=== PATIENT | male | born 1950 | race Caucasian/White ===

== ENCOUNTER 2019-07-17 12:22 | Inpatient (IN) | payer MEDICARE ==
[2019-07-10 15:31] LABS: BASOPHILS # (AUTO) 0.1 X10'3 (0-0.2); BASOPHILS % (AUTO) 1.1 % (0-1); EOSINOPHILS # (AUTO) 0.1 X10'3 (0-0.9); EOSINOPHILS % (AUTO) 1.4 % (0-6); LYMPHOCYTES # (AUTO) 1.3 X10'3 (1.1-4.8); LYMPHOCYTES % (AUTO) 23.7 % (21-51); MEAN CORPUSCULAR HEMOGLOBIN 32.3 PG (27.0-31.0); MEAN CORPUSCULAR HGB CONC 35.1 g/dL (33.0-36.5); MEAN PLATELET VOLUME 7.4 FL (7.4-10.4); MONOCYTES # (AUTO) 0.5 X10'3 (0-0.9); MONOCYTES % (AUTO) 9.3 % (2-12); NEUTROPHILS # (AUTO) 3.7 X10'3 (1.8-7.7); NEUTROPHILS % (AUTO) 64.5 % (42-75); PRE OP HEMATOCRIT 41.3 % (42.0-52.0); PRE OP HEMOGLOBIN 14.5 g/dL (14.0-17.9); PRE OP PLATELET COUNT 199 X10'3 (140-440); RED BLOOD COUNT 4.49 X10'6 (4.70-6.10); RED CELL DISTRIBUTION WIDTH 13.1 % (11.5-14.5)
[2019-07-10 15:44] LABS: PRE OP INR 1.1 INR; PRE OP PROTIME 11.2 SECONDS (9.0-12.0)
[2019-07-10 16:04] LABS: ALBUMIN/GLOBULIN RATIO 1.1 (1.1-1.5); ALKALINE PHOSPHATASE 93 IU/L (46-116); BLOOD UREA NITROGEN 10 MG/DL (7-18); BUN/CREATININE RATIO 8.8 (5.4-32.0); CALCIUM 8.9 MG/DL (8.5-10.1); CHLORIDE 97 MMOL/L (99-107); CREATININE 1.14 MG/DL (0.60-1.10); PRE OP ALT 49 U/L (30-65); PRE OP ANION GAP 8 (8-16); PRE OP AST 42 U/L (10-37); PRE OP GLUCOSE 118 MG/DL (70-104); PRE OP POTASSIUM 4.1 MMOL/L (3.4-5.1); PRE OP SODIUM 133 MMOL/L (135-145); TOTAL PROTEIN 7.6 G/DL (6.4-8.2); eGFR 64 ML/MIN
[2019-07-10 16:17] LABS: HEMOGLOBIN A1C 6.2 % (4.5-6.2)
[~2019-07-17] VITALS: Ht 185.4 cm; Wt 114.0 kg
[2019-07-17] VITALS (18 sets, daily range): BP systolic 119–191; BP diastolic 45–91
[2019-07-17] MEDS: atenolol 50mg tablet PO SCH (08:00)
[2019-07-17] MEDS: lisinopril 20mg tablet PO SCH (08:00)
[2019-07-17] MEDS: ascorbic acid 500mg tablet PO SCH ×2 (08:00→20:13)
[2019-07-17] MEDS: gabapentin 300mg capsule PO SCH ×3 (08:00→20:13)
[2019-07-17] MEDS: multivitamins, therapeutics tablet PO SCH (08:00)
[2019-07-17] MEDS: pantoprazole 40mg Tablet.DR PO SCH ×2 (08:00→20:13)
[~2019-07-17 12:22] MED LIST: ALPR-13; ATEN1TAB4 PO; BENA40TA72 PO; CLOP75TA35 PO; DOCUMENT DATE & TIME OF BETA-BLOCKER PO ONE; FEXO-124 PO; GLIM1TAB3 PO; HYDROmorphone 1 mg/ml syringe IV PRN; HYDROmorphone inj. 0.5 MG/0.5 ML DISP.SYRIN IV PRN; MESSAGE TO PHARMACY PO ONE; METF500T PO; NITR0.4T51 SL; PANT40TA4 PO; ROPIVAcaine 0.5% (5mg/ml) 30ml vial ONE; SIMV80TA2 PO; ZOLP10TA5 PO; acetaminophen 325mg tablet PO ONE; acetaminophen 325mg tablet PO PRN; bisacodyl 10mg suppository rectal RC PRN; cefazolin/dext.iso 2gm/100ml 100 ML IV ONE; cefazolin/dext.iso 2gm/100ml 100 ML IV SCH; celeCOXIB 100mg capsule PO ONE; cloNIDine hcl/PF 100mcg/ml inj ONE; dextrose 50%-water 50ml dispensing syringe IV PRN; dextrose ORAL solution 15 GM/59 ML bottle PO PRN; diphenhydrAMINE 25mg capsule PO PRN; epiNEPHrine 1 mg/ml inj ONE; famotidine 20mg tablet PO ONE; gabapentin 300mg capsule PO ONE; glucagon, human recombinant 1mg kit SUBCUT PRN; insulin Lispro (HumaLOG) vial - multi-dose SQ SCH; ketorolac trometh. 30mg/ml inj. ONE; magnesium hydroxide 30ml (MOM) UD suspension PO PRN; metoclopramide 5 mg/ml inj IV ONE; nitroGLYCERIN 0.4mg SUBLingual tab SL PRN; ondansetron/PF 4mg/2ml inj IV PRN; oxyCODONE SR 10mg (sust. release) tab -2 tabs (20mg) PO ONE; oxyCODONE/APAP 10/325mg tablet PO PRN; ringers solution, lacted 1,000 ML IV SCH; tranexamic acid inj. 1,000 MG in normal saline 100 ML IV ONE; vancomycin 1,000mg inj ONE; vancomycin inj 1,500 MG in normal saline 300ml IV soln IV ONE
[2019-07-17] MEDS ORDERED: mineral oil 10ml sterile, topical TP ONE (12:54)
[2019-07-17] MEDS ORDERED: ringers solution, lacted 1,000 ML IV SCH (13:26)
[2019-07-17] MEDS ORDERED: hydrALAZINE 20mg/ml inj. IV ONE (13:28)
[2019-07-17] MEDS ORDERED: fentaNYL/PF 50MCG/1 ML 2ML syringe IV PRN ×2 (13:30)
[2019-07-17] MEDS ORDERED: labetalol 20mg/4ml (5mg/ml) syringe IV PRN (13:30)
[2019-07-17] MEDS ORDERED: tetracaine 1% (10mg/ml) pres. free inj. ONE (13:30)
[2019-07-17] MEDS ORDERED: morphine 4 MG/ML inj SYRINge IV PRN ×2 (13:30)
[2019-07-17] MEDS ORDERED: hydrALAZINE 20mg/ml inj. IV PRN (13:30)
[2019-07-17] MEDS ORDERED: ondansetron/PF 4mg/2ml inj IV PRN ×2 (13:30→14:15)
[2019-07-17] MEDS ORDERED: morphine /PF 1mg/ml 10ml inj. ONE (13:33)
[2019-07-17] MEDS ORDERED: MIDAZolam 1mg/ml 10ml vial ONE (13:33)
[2019-07-17] MEDS ORDERED: ROPIVAcaine 0.2%/PF PUMP/bolus 550 ML ADDCANAL SCH (14:12)
[2019-07-17] MEDS ORDERED: ROPIVAcaine 0.2% (10 MG/5 ML) BOLUS INJECTION ADDCANAL PRN ×2 (14:15→17:20)
[2019-07-17] MEDS ORDERED: diphenhydrAMINE 50 mg/ml inj IV PRN (14:15)
--- NOTE | 2019-07-17 16:25 | NUR ---
Received from OR via BED , accompanied by Anesthesiologist and report given by Anesthesiolgist. PATIENT WAKING UP, DENIES PAIN, V/S WNL, NEUROVASCULAR CHECKS INTACT, SAVANNAH DRESSING TO LEFT KNEE CDI WITH COLD POWDER PACK ON AND ON QUE BALL BLOCK AT 4ML/HR. SCD ON. 18G LUE PIV. F/C DRAINING CLEAR YELLOW URINE
[2019-07-17] MEDS: ROPIVAcaine 0.2%/PF PUMP/bolus 550 ML ADDCANAL SCH (17:35)
--- NOTE | 2019-07-17 17:35 | NUR ---
PATIENT WAKING UP, DENIES PAIN, V/S WNL, NEUROVASCULAR CHECKS INTACT, SAVANNAH DRESSING TO LEFT KNEE CDI WITH COLD POWDER PACK ON AND ON QUE BALL BLOCK AT 4ML/HR. SCD ON. 18G LUE PIV. F/C DRAINING CLEAR YELLOW URINE. TELE ON. .. pATIENT TAKEN TO ORTHO ROOM AND HOOKED UP TO MONITORS IN ROOM AND PULSE OX, CALL LIGHT GIVEN TO PATIENT AND Problems reprioritized. Patient report given , questions answered & plan of care reviewed RECIEVING FENCE MAKER WHO HAS TAKEN OVER PATIENT CARE.
--- NOTE | 2019-07-17 18:20 | NUR ---
Report to Emilia CARDOSO
[2019-07-17] MEDS ORDERED: tranexamic acid inj. 1,000 MG in normal saline 100ml IV soln 100 ML IV ONE (20:00)
[2019-07-17] MEDS: sennosides 8.6mg tablet PO SCH (20:13)
[2019-07-17] MEDS: loratadine 10mg tablet PO SCH (20:13)
[2019-07-17] MEDS: atorvastatin 20mg tablet PO SCH (20:14)
[2019-07-17] MEDS: zolpidem 5mg tablet PO SCH ×2 (20:21→23:56)
[2019-07-17] MEDS: insulin glargine (Lantus) pen - multi-dose SQ SCH (21:00)
[2019-07-17] MEDS: potassium cl 20mEq in 1/2 NS 1,000 ML IV SCH ×2 (22:41→23:59)
[2019-07-18] MEDS: cefazolin/dext.iso 2gm/100ml 100 ML IV SCH ×2 (00:51→08:57)
[2019-07-18 06:00] VITALS: BP 148/67
[2019-07-18 06:19] LABS: BASOPHILS % (AUTO) 0.6 % (0-1); EOSINOPHILS % (AUTO) 0.1 % (0-6); HEMATOCRIT 36.3 % (42.0-52.0); HEMOGLOBIN 12.7 g/dl (14.0-17.9); LYMPHOCYTES # (AUTO) 0.2 X10'3 (1.1-4.8); LYMPHOCYTES % (AUTO) 2.6 % (21-51); MEAN CORPUSCULAR HEMOGLOBIN 32.5 PG (27.0-31.0); MEAN CORPUSCULAR HGB CONC 34.9 g/dL (33.0-36.5); MEAN CORPUSCULAR VOLUME 93.2 FL (78-98); MEAN PLATELET VOLUME 7.6 FL (7.4-10.4); MONOCYTES # (AUTO) 0.3 X10'3 (0-0.9); MONOCYTES % (AUTO) 3.2 % (2-12); NEUTROPHILS # (AUTO) 7.6 X10'3 (1.8-7.7); NEUTROPHILS % (AUTO) 93.5 % (42-75); PLATELET COUNT 171 X10'3 (140-440); RED CELL DISTRIBUTION WIDTH 12.8 % (11.5-14.5); WHITE BLOOD COUNT 8.1 X10'3 (4.5-11.0)
--- NOTE | 2019-07-18 06:40 | NUR ---
REPORT GIVEN TO WALKER DE JESUS.
[2019-07-18 07:44] LABS: ANION GAP 12 (8-16); CHLORIDE 94 MMOL/L (99-107); POTASSIUM 4.5 MMOL/L (3.5-5.1); SODIUM 129 MMOL/L (135-145); TOTAL CARBON DIOXIDE 23.5 MMOL/L (24-32)
[2019-07-18] MEDS: clopidogrel 75mg tablet PO SCH ×2 (08:20→08:56)
[2019-07-18] MEDS: chlorthalidone 25mg tablet PO SCH (08:55)
[2019-07-18] MEDS: ascorbic acid 500mg tablet PO SCH ×2 (08:55→20:03)
[2019-07-18] MEDS: atenolol 50mg tablet PO SCH (08:55)
[2019-07-18] MEDS: gabapentin 300mg capsule PO SCH ×3 (08:55→20:04)
[2019-07-18] MEDS: pantoprazole 40mg Tablet.DR PO SCH ×2 (08:56→20:04)
[2019-07-18] MEDS: lisinopril 20mg tablet PO SCH (08:56)
[2019-07-18] MEDS: multivitamins, therapeutics tablet PO SCH (08:56)
[2019-07-18] MEDS: potassium cl 20mEq in 1/2 NS 1,000 ML IV SCH ×3 (08:57→23:24)
[2019-07-18 10:00] VITALS: BP 143/48
[2019-07-18 14:00] VITALS: BP 121/98
--- NOTE | 2019-07-18 15:32 | NUR ---
Protein ed: Pt s/p arthroplasty of left knee. RD and safety intern visit pt at bedside, provided written protein education with verbal review and RD contact information; emphasized the importance of protein to support wound healing and fighting infections. Pt PO intake avg 75% on a consistent carbohydrate diet, meeting nutrient needs. Pt declines additional protein at this time. Will continue to follow. Addendum: 07/18/19 at 1533 by Wing Miles [place] Amended: Links added. Addendum: 07/18/19 at [address] I have reviewed and agree with note by Police Patrol Lieutenant. Nabila Zaragoza RD
[2019-07-18 18:00] VITALS: BP 176/68
--- NOTE | 2019-07-18 18:30 | NUR ---
Report to Alisa CARDOSO
--- NOTE | 2019-07-18 18:30 | NUR ---
Patient in room ORTHO 4011. I have received report from masoud Tracy and had the opportunity to ask questions and assume patient care.
[2019-07-18 19:56] VITALS: BP 156/64
[2019-07-18] MEDS: celeCOXIB 100mg capsule PO SCH (20:02)
[2019-07-18] MEDS: zolpidem 5mg tablet PO SCH (20:02)
[2019-07-18] MEDS: loratadine 10mg tablet PO SCH (20:03)
[2019-07-18] MEDS: atorvastatin 20mg tablet PO SCH (20:03)
[2019-07-18] MEDS: sennosides 8.6mg tablet PO SCH (20:04)
[2019-07-18] MEDS: insulin glargine (Lantus) pen - multi-dose SQ SCH (21:00)
[2019-07-18 22:00] VITALS: BP 164/61
[2019-07-19 05:55] LABS: BASOPHILS % (AUTO) 0.4 % (0-1); EOSINOPHILS % (AUTO) 0.2 % (0-6); HEMATOCRIT 33.4 % (42.0-52.0); LYMPHOCYTES # (AUTO) 1.2 X10'3 (1.1-4.8); LYMPHOCYTES % (AUTO) 14.6 % (21-51); MEAN CORPUSCULAR HEMOGLOBIN 32.7 PG (27.0-31.0); MEAN CORPUSCULAR HGB CONC 35.8 g/dL (33.0-36.5); MEAN CORPUSCULAR VOLUME 91.3 FL (78-98); MEAN PLATELET VOLUME 7.4 FL (7.4-10.4); MONOCYTES # (AUTO) 0.8 X10'3 (0-0.9); MONOCYTES % (AUTO) 9.6 % (2-12); NEUTROPHILS # (AUTO) 6.2 X10'3 (1.8-7.7); NEUTROPHILS % (AUTO) 75.2 % (42-75); PLATELET COUNT 176 X10'3 (140-440); RED BLOOD COUNT 3.66 X10'6 (4.70-6.10); RED CELL DISTRIBUTION WIDTH 12.8 % (11.5-14.5); WHITE BLOOD COUNT 8.2 X10'3 (4.5-11.0)
[2019-07-19 06:00] VITALS: BP 132/61
--- NOTE | 2019-07-19 06:31 | NUR ---
Problems reprioritized. Patient report given, questions answered & plan of care reviewed with WALKER RITCHIE.
--- NOTE | 2019-07-19 06:38 | NUR ---
Patient in room ORTHO 4011. I have received report from Alisa CARDOSO and had the opportunity to ask questions and assume patient care.
[2019-07-19] MEDS: pantoprazole 40mg Tablet.DR PO SCH (08:09)
[2019-07-19] MEDS: lisinopril 20mg tablet PO SCH (08:12)
[2019-07-19] MEDS: atenolol 50mg tablet PO SCH (08:12)
[2019-07-19] MEDS: celeCOXIB 100mg capsule PO SCH (08:12)
[2019-07-19] MEDS: chlorthalidone 25mg tablet PO SCH (08:13)
[2019-07-19] MEDS: ascorbic acid 500mg tablet PO SCH (08:13)
[2019-07-19] MEDS: gabapentin 300mg capsule PO SCH (08:15)
[2019-07-19] MEDS: multivitamins, therapeutics tablet PO SCH (08:15)
[2019-07-19] MEDS: clopidogrel 75mg tablet PO SCH (08:15)
[2019-07-19 10:00] VITALS: BP 147/50
[2019-07-19] MEDS: ROPIVAcaine 0.2%/PF PUMP/bolus 550 ML ADDCANAL SCH (12:21)
== END 2019-07-19 12:30 | disposition home or self-care (01) | DRG 470 ==
LOC: PAS 12:22 → EDSTATUS 13:30 → ORTHO 4S 16:44
PROVIDERS: ADMIT Orthopaedic Surgery; ATTEND Orthopaedic Surgery
PROC: 0SRD0J9 Replacement of Left Knee Joint with Synthetic Substitute, Cemented, Open Approach (ICD-10-PCS; principal; 2019-07-17 13:28)
DX: M17.12 Unilateral primary osteoarthritis, left knee (principal); D62 Acute posthemorrhagic anemia; I25.10 Atherosclerotic heart disease of native coronary artery without angina pectoris; F41.9 Anxiety disorder, unspecified; I10 Essential (primary) hypertension; E11.51 Type 2 diabetes mellitus with diabetic peripheral angiopathy without gangrene; K21.9 Gastro-esophageal reflux disease without esophagitis; E78.5 Hyperlipidemia, unspecified; Z79.899 Other long term (current) drug therapy
CPT/HCPCS: 36415; 73560; 80051; 80053; 82948; 83036; 85025; 85610; 85730; 86885; 86900; 86901; 87081; 97116; 97162; 97530; A4215; A6449; A6454; A7000; C1713; C1758; C1776; G0378; J0171; J0360; J0735; J1815; J1885; J2250; J2270; J2405; J2765; J2795; J3370; J3480; J7120

== ENCOUNTER → 2024-01-27 | Outpatient (CLI) | payer MEDICARE ==
[~2024-01-27] MED LIST changes: +AMA1T PO; +CLOP75TA34 PO; -CLOP75TA35 PO; -DOCUMENT DATE & TIME OF BETA-BLOCKER PO ONE; -FEXO-124 PO; +FEXO-271 PO; -GLIM1TAB3 PO; -HYDROmorphone 1 mg/ml syringe IV PRN; -HYDROmorphone inj. 0.5 MG/0.5 ML DISP.SYRIN IV PRN; -MESSAGE TO PHARMACY PO ONE; -PANT40TA4 PO; +PANT40TA54 PO; -ROPIVAcaine 0.5% (5mg/ml) 30ml vial ONE; -acetaminophen 325mg tablet PO ONE; -acetaminophen 325mg tablet PO PRN; -bisacodyl 10mg suppository rectal RC PRN; -cefazolin/dext.iso 2gm/100ml 100 ML IV ONE; -cefazolin/dext.iso 2gm/100ml 100 ML IV SCH; -celeCOXIB 100mg capsule PO ONE; -cloNIDine hcl/PF 100mcg/ml inj ONE; -dextrose 50%-water 50ml dispensing syringe IV PRN; -dextrose ORAL solution 15 GM/59 ML bottle PO PRN; -diphenhydrAMINE 25mg capsule PO PRN; -epiNEPHrine 1 mg/ml inj ONE; -famotidine 20mg tablet PO ONE; -gabapentin 300mg capsule PO ONE; -glucagon, human recombinant 1mg kit SUBCUT PRN; -insulin Lispro (HumaLOG) vial - multi-dose SQ SCH; +iohexol 350MG/ML 100ml bottle IV ONE; -ketorolac trometh. 30mg/ml inj. ONE; -magnesium hydroxide 30ml (MOM) UD suspension PO PRN; -metoclopramide 5 mg/ml inj IV ONE; -nitroGLYCERIN 0.4mg SUBLingual tab SL PRN; -ondansetron/PF 4mg/2ml inj IV PRN; -oxyCODONE SR 10mg (sust. release) tab -2 tabs (20mg) PO ONE; -oxyCODONE/APAP 10/325mg tablet PO PRN; -ringers solution, lacted 1,000 ML IV SCH; -tranexamic acid inj. 1,000 MG in normal saline 100 ML IV ONE; -vancomycin 1,000mg inj ONE; -vancomycin inj 1,500 MG in normal saline 300ml IV soln IV ONE
== END | disposition home or self-care (01) ==
LOC: RAD 13:31
PROVIDERS: ATTEND Radiology Diagnostic Radiology
DX: E04.2 Nontoxic multinodular goiter (principal); I65.23 Occlusion and stenosis of bilateral carotid arteries
CPT/HCPCS: 70496; 70498; Q9967